=== PATIENT | female | born 1985 | race Caucasian/White ===

== ENCOUNTER 2016-09-28 15:04 | Emergency (ER) | payer OTHER ==
[~2016-09-28 15:04] MED LIST: ALBUTEROL17 GM INH; ANTIBIOTICS; AUGMENTIN ES-6125 ML PO; BACTRIM DS TABL1 TAB PO; CLARITIN10 M3 PO; DEPO-PROVER150 MG/ML; DEPO-PROVER150 MG/ML INJ; DOXYCYCLINE PO; FLEXERIL; IBUPROFEN; MAGIC MOUTH WASH; OMEPRAZOLE40 M1 PO; ORAL GEL15 GM TOP; ORUDIS75 M1 PO; PERIDEX480 ML PO; PHENERGAN PO; XANAX0.5 MG PO
[2016-09-28] MEDS ORDERED: ZOLOFT (15:12)
== END 2016-09-28 15:50 | disposition home or self-care (01) ==
LOC: SED 15:04
DX: J02.9 Acute pharyngitis, unspecified (principal); F17.210 Nicotine dependence, cigarettes, uncomplicated; Z91.040 Latex allergy status; Z88.8 Allergy status to other drugs, medicaments and biological substances
CPT/HCPCS: 87651; 99282; 99283

== ENCOUNTER 2016-12-21 08:35 | Emergency (ER) | payer OTHER ==
--- NOTE | ~2016-12-21 | CR63 ---
[facility]. [facility] A Service of [facility] & [facility] RADIOLOGY TEXT RESULTS PATIENT: DOMINGO GIMNEEZ LOCATION: SED : 85 UNIT #: [id number] AGE: [address]: Vicente Blake MD SEX: F ORDER DR: [id number] [place] [id number] E MR#: [id number] Acc #: [id number] NAME: DOMINGO GIMENEZ. : 1985 SEX: F STUDY DATE/TIME: 12/21/2016 8:55 UNIT: SED ROOM: STUDY DESCRIPTION: CR Chest 2 View Attending Physician: Vicente Blake M.D. Ordering Physician: Vicente Blake M.D. Primary Care Physician: Primary Care Physician No MEDICAL IMAGING REPORT This report is preliminary unless electronic signature is present. EXAM PA and lateral chest INDICATION Cough for 1 week. COMPARISON 09/24/2015 FINDINGS Lungs are well expanded and clear. Heart size is normal. Visualized osseous structures are unremarkable. IMPRESSION Negative chest. Dictated by... William Mancilla M.D. THIS IS AN ELECTRONICALLY VERIFIED REPORT William Mancilla M.D. at 12/22/2016 7:35 AM MONALISA/benigno TD: 12/22/2016 04:46 JOB #: [id number] MEDICAL IMAGING REPORT Page 1 of 1
[~2016-12-21 08:35] MED LIST changes: +ZOLOFT
== END 2016-12-21 09:19 | disposition home or self-care (01) ==
LOC: SED 08:35
DX: J20.9 Acute bronchitis, unspecified (principal); J01.00 Acute maxillary sinusitis, unspecified; J01.20 Acute ethmoidal sinusitis, unspecified; J45.909 Unspecified asthma, uncomplicated; Z90.49 Acquired absence of other specified parts of digestive tract; F32.9 Major depressive disorder, single episode, unspecified; F41.9 Anxiety disorder, unspecified; F17.210 Nicotine dependence, cigarettes, uncomplicated; Z91.040 Latex allergy status; Z88.8 Allergy status to other drugs, medicaments and biological substances
CPT/HCPCS: 71020; 94640; 99283